=== PATIENT | female | born 1995 | race Two or more races ===

== ENCOUNTER 2020-07-26 19:24 | Emergency (ER) | payer SELFPAY ==
[~2020-07-26] VITALS: Ht 190.5 cm; Wt 124.1 kg
--- NOTE | 2020-07-26 19:33 | NUR ---
EKG DONE STAT AT TRIAGE, TO PROVIDER
[2020-07-26 20:05] LABS: BASOPHILS % (AUTO) 0 % (0-1); EOSINOPHILS % (AUTO) 0 % (1-7); LYMPHOCYTES % (AUTO) 36 % (22-44); MEAN CORPUSCULAR HEMOGLOBIN 30.3 pg (27.0-34.8); MEAN CORPUSCULAR HGB CONC 33.9 g/dL (32.4-35.8); MEAN PLATELET VOLUME 8.8 fL (7.4-10.4); MONOCYTES % (AUTO) 10 % (2-9); NEUTROPHILS % (AUTO) 54 % (42-75); PLATELET COUNT 164 x10^3/uL (130-400); RED CELL DISTRIBUTION WIDTH 13.3 % (9.6-15.2)
[2020-07-26 20:10] LABS: MD NO
[2020-07-26 20:12] LABS: ALBUMIN 3.6 g/dL (3.4-5.0); ANION GAP 6 mmol/L (5-15); CALCIUM 8.9 mg/dL (8.5-10.1); CHLORIDE 106 mmol/L (98-107)
[2020-07-26 20:17] LABS: ALANINE AMINOTRANSFERASE 153 U/L (12-78); ALKALINE PHOSPHATASE 61 U/L (45-117); BILIRUBIN,TOTAL 0.5 mg/dL (0.2-1.0); CREATININE 1.02 mg/dL (0.55-1.02); TOTAL PROTEIN 7.8 g/dL (6.4-8.2)
--- NOTE | 2020-07-26 20:45 | NUR ---
LATE ENTRY SUMMARY NOTE: PT STATES SHE STARTED CONTROL FOR THE FIRST TIME ON THE . PT STATES THAT IN THE MORNING SOMETIMES SHE WAKES UP AND HER LEGS FEEL NUMB.
--- NOTE | 2020-07-26 20:54 | NUR ---
PT AMBULATORY TO ROOM. PT PLACED ON CARDIAC, BP AND O2 MONITORS. PT HAS CALL LIGHT IN REACH. ERP TO BEDSIDE. AWAITING ORDERS AND WILL CONTINUE TO MONITOR.
--- NOTE | 2020-07-26 22:25 | NUR ---
PT TO AND FROM IMAGING. NADN. ALL NEEDS MET.
[2020-07-26 22:34] VITALS: BP 119/73
[2020-07-26] MEDS ORDERED: OMNIPAQUE 350 MG/ML, 100ML BOTTLE ONE (22:37)
== END 2020-07-26 23:40 | disposition home or self-care (01) ==
LOC: ED 23:00
DX: U07.1 COVID-19 (principal); J06.9 Acute upper respiratory infection, unspecified; R00.0 Tachycardia, unspecified
CPT/HCPCS: 36415; 71045; 71275; 80053; 84703; 85025; 87635; 93005; 93970; 99285; Q9967